=== PATIENT | female | born 1990 | race Caucasian/White ===

== ENCOUNTER → 2021-06-15 09:03 | Outpatient (CLI) | payer OTHER, SELFPAY ==
--- NOTE | 2021-06-15 | DI.US.S_ITS ---
PROCEDURE: US OB BIOPHYSICAL PROFILE INDICATIONS: AMNIOTIC FLUID AND BIOPHYSICAL PROFILE OUTSIDE/PRIOR DATING DATA: Last menstrual period (LMP): Un known. LMP-based estimated date of delivery (NATALIE): Unknown. First dating scan (date and location): 01/18/2021. Estimated date of delivery (NATALEI) from first dating scan: 06/08/2021. TECHNIQUE: Real-time scanning was performed of the fetus, with image documentation and biometric measurements. Biophysical profile was also obtained. COMPARISON: [facility], , US OB > 14 WEEKS COMPLETE ANATOMY, 01/18/2021, 9:53. FINDINGS: General: A single living intrauterine gestation is present. Presentation: Vertex Placenta: Placental position is anterior, without previa. Amniotic fluid index: 2.2 cm, normal range is 5-24 cm. heart rate: 160 beats per minute. Maternal cervical canal: Not evaluated Estimated gestational age by initial ultrasound is 41 weeks, 0 day. Biophysical profile: Tone: 2 points. Movement: 2 points. Respiration: 2 points. Largest pocket of fluid: 0 points. IMPRESSION: 1. Single live intrauterine with fetus in vertex presentation. heart rate is 160 beats per minute. 2. Oligohydramnios with ANJELICA equals 2.2 cm. biophysical profile score is 6/8 as above. Dictated by: Ab Villalpando M.D. on 06/15/2021 at 11:30 Approved by: Ab Villalpando M.D. on 06/15/2021 at 11:33
== END ==
PROVIDERS: PCP Midwife; Referring Provider Midwife; Visit Provider Midwife
DX: O48.0 Post-term pregnancy (principal); O41.03X0 Oligohydramnios, third trimester, not applicable or unspecified; Z3A.41 41 weeks gestation of pregnancy
CPT/HCPCS: 76819